=== PATIENT | male | born 1975 | race African-American/Black ===

== ENCOUNTER 2017-10-01 13:31 | Emergency (ER) | payer SELFPAY ==
[~2017-10-01] VITALS: Ht 170.2 cm; Wt 73.0 kg
[~2017-10-01 13:31] MED LIST: DARV PO; LEVA500T33 PO; METO50TA PO
[2017-10-01 13:54] VITALS: BP 141/86; PULSE 91; RESP 15; TEMP 98.3; O2SAT 99
[2017-10-01] MEDS ORDERED: ERYTOIN10 RIGHT EYE (14:14)
[2017-10-01] MEDS ORDERED: AMOX875T PO (14:14)
--- NOTE | 2017-10-01 14:14 | PD ---
HPI Chief Complaint: Eye Problems/Injury Time Seen by Provider: 13:57 Travel History International Travel<30 days: No Contact w/Intl Traveler<30days: No Traveled to known affect area: No History of Present Illness HPI Patient is a 42-year-old male presenting to the emergency department for evaluation of right eye redness and tearing. Patient states it started 4-5 days ago. He reports he feels as if he has sinusitis again. He states that this happened last year, the same way. He states his eye feels irritated, is crusted in the morning. He denies any visual changes although he reports photophobia and cannot fully open his eye. He denies any fever, chills, nausea , vomiting. His pain is a 7 out of 10, it sore, no alleviating factors. Patient's been using Visine several times a day with no improvement in his symptoms. Patient also reports nasal congestion and a frontal headache. PFSH Past Medical History Medical History: Denies Significant Hx Blood Disorders: No Cardiovascular Problems: No Chemotherapy: No Endocrine: No Genitourinary: No Immune Disorder: No Musculoskeletal: No Neurologic: No Psychiatric: No Reproductive: No Respiratory: No Radiation Therapy: No Past Surgical History Abdominal Surgery: No AICD: No Arteriovenous Shunt: No Cardiac Surgery: No Ear Surgery: No Endocrine Surgery: No Eye Surgery: No Genitourinary Surgery: No Gynecologic Surgery: No Insulin Pump: No Joint Replacement: No Oral Surgery: No Pacemaker: No Thoracic Surgery: No Social History Alcohol Use: Yes ('[employer] WEEKENDS') Tobacco Use: Yes (3 CIGARS/DA) Allergies-Medications (Allergen,Severity, Reaction): Coded Allergies: No Known Allergies (Verified Allergy, Mild, 10/01/17) Reported Meds & Prescriptions Reported Meds & Active Scripts Active No Active Prescriptions or Reported Medications Review of Systems Except as stated in HPI: all other systems reviewed are Neg General / Constitutional: No: Fever Eyes: Positive: Photophobia, Drainage, Redness, Tearing, No: Visual changes HENT: Positive: Headaches Physical Exam Narrative GENERAL: Well-developed, well-nourished alert -[place] male. Presenting in no acute distress. SKIN: Warm and dry. HEAD: Normocephalic. EYES: No scleral icterus. Moderate injection to right eye, extraocular movements are intact. Pupils are equal, round, reactive. Fluorescein eye exam is negative for abrasions or lesions. NECK: Supple, trachea midline. No JVD or lymphadenopathy. CARDIOVASCULAR: Regular rate and rhythm without murmurs, gallops, or rubs. RESPIRATORY: Breath sounds equal bilaterally. No accessory muscle use. GASTROINTESTINAL: Abdomen soft, non-tender, nondistended. MUSCULOSKELETAL: No cyanosis, or edema. BACK: Nontender without obvious deformity. No CVA tenderness. Data Data Last Documented VS Vital Signs Date Time Temp Pulse Resp B/P (MAP) Pulse Ox O2 Delivery O2 Flow Rate FiO2 10/01/17 13:54 98.3 91 15 141/86 (104) 99 Orders Orders Erythromycin 0.5% Opth Oint (Ilotycin 0. (10/01/17 14:15) [facility] Medical Decision Making Medical Screen Exam Complete: Yes Emergency Medical Condition: Yes Interpretation(s) Vital Signs Date Time Temp Pulse Resp B/P (MAP) Pulse Ox O2 Delivery O2 Flow Rate FiO2 10/01/17 13:54 98.3 91 15 141/86 (104) 99 Differential Diagnosis Viral conjunctivitis versus bacterial conjunctivitis versus retained foreign body versus abrasion versus sinusitis versus other Narrative Course Patient is a 42-year-old male presenting to emerge from for evaluation of right eye redness. Patient's vital signs are stable, exam appears most consistent with viral conjunctivitis, symptoms been ongoing for 4-5 days. He is afebrile currently. Additionally patient has been over utilizing Visine which is likely contributing to his symptoms. Patient will be given erythromycin ointment now. He will be given a prescription for amoxicillin. He is advised to return to emergency department if he has no improvement in his symptoms in the next 48 hours or if his symptoms worsen despite treatment. He was advised to avoid rubbing. He was encouraged to apply cool compresses to the affected area. He verbalized understanding of these instructions. Patient stable for discharge. Diagnosis Primary Impression: Acute sinusitis Qualified Codes: J01.10 - Acute frontal sinusitis, unspecified Additional Impression: Conjunctivitis Qualified Codes: H10.31 - Unspecified acute conjunctivitis, right eye Referrals: [facility] [employer] 2 days Patient Instructions: Conjunctivitis (ED), General Instructions, Sinusitis (ED) Additional Instructions: Apply cool compresses to the affected eye Use medication as directed Complete full course of antibiotics as prescribed Follow-up with [facility] Return to emergency department for any new or worsening symptoms Med/Other Pt SpecificInfo: Prescription(s) given Scripts Erythromycin Opth Oint (Erythromycin Opth Oint) 5 Mg/Gm Oint 1 APPLIC RIGHT EYE QID for Infection, #1 TUBE 0 Refills Prov: Kira Altman 10/01/17 Amoxicillin (Amoxicillin) 875 Mg Tab 875 MG PO BID for Infection, #20 TAB 0 Refills Prov: Kira Altman 10/01/17 Disposition: 01 DISCHARGE HOME Condition: Stable Kira Altman October 01, 2017 14:14
[2017-10-01] MEDS ORDERED: ERYTHROMYCIN 0.5% OPTH OINT 3.5 GM TUBO RIGHT EYE ONE (14:15)
== END 2017-10-01 14:30 | disposition home or self-care (01) ==
LOC: NEPK 13:31
DX: J01.10 Acute frontal sinusitis, unspecified (principal); H10.31 Unspecified acute conjunctivitis, right eye; F17.290 Nicotine dependence, other tobacco product, uncomplicated
CPT/HCPCS: 99283